=== PATIENT | male | born 1960 | race African-American/Black ===

== ENCOUNTER 2017-03-10 18:24 | Emergency (ER) | payer OTHER ==
[~2017-03-10] VITALS: Ht 177.8 cm; Wt 77.3 kg
[~2017-03-10 18:24] MED LIST: AMLO-511 PO; ARIP30TA PO; CHLO50 PO; LISI5TAB PO; PARO20TA24 PO; PERCT10 PO; PHEN100C23 PO; QUET200T PO
[2017-03-10 19:25] LABS: BASOPHILS % (AUTO) 0.3 % (0.0-2.0); EOSINOPHILS % (AUTO) 2.7 % (1.0-6.0); HEMATOCRIT 42.4 % (41-53); HEMOGLOBIN 14.4 g/dL (13.5-17.5); LYMPHOCYTES # (AUTO) 2.5 K/uL (1.0-4.8); LYMPHOCYTES % (AUTO) 28.3 % (22.0-44.0); MEAN CORPUSCULAR VOLUME 85 fL (80-100); MONOCYTES # (AUTO) 0.1 K/uL (0.1-1.0); MONOCYTES % (AUTO) 0.8 % (2.0-9.0); NEUTROPHILS % (AUTO) 67.9 % (40.0-70.0); PLATELET COUNT (AUTO) 295 K/uL (150-450); RED BLOOD CELL COUNT(AUTO) 4.97 MIL/uL (4.50-5.90)
[2017-03-10 19:37] LABS: PROTHROMBIN TIME 10.7 SEC (9.4-11.6)
[2017-03-10] MEDS ORDERED: ONDANSETRON HCL 4 MG/2 ML VIAL IVP ONE (19:45)
[2017-03-10 19:47] LABS: ANION GAP 7 mmol/L (8-16); CALCIUM, TOTAL 9.1 mg/dL (8.8-10.5); CARBON DIOXIDE 31 mmol/L (22-29); CHLORIDE 100 mmol/L (98-107); CREATININE 1.12 mg/dL (0.60-1.30); GLOMERULAR FILTR. RATE CALC > 60 mL/min (>60); GLUCOSE,RANDOM 91 mg/dL (70-110); POTASSIUM 3.8 mmol/L (3.5-5.1); SODIUM SERUM 138 mmol/L (136-145)
[2017-03-10 20:04] LABS: B-TYPE NATRIURETIC PEPTIDE < 5 pg/mL (0-100)
[2017-03-10 20:11] LABS: ALANINE AMINOTRANSFERASE 25 U/L (12-78); ALBUMIN 3.4 g/dL (3.4-5.0); ALKALINE PHOSPHATASE 88 U/L (46-116); ASPARTATE AMINOTRANSFERASE 21 U/L (15-37); BILIRUBIN,TOTAL 0.3 mg/dL (0.1-1.0); CREATINE KINASE, TOTAL 395 U/L (39-308); LIPASE 90 U/L (73-393); TOTAL PROTEIN, SERUM 7.7 g/dL (6.4-8.2)
[2017-03-10 20:20] LABS: UREA NITROGEN, BLOOD 8 mg/dL (7-18)
[2017-03-10 20:32] LABS: PHENYTOIN (DILANTIN) < 0.5 mcg/mL (10.0-20.0)
[2017-03-10] MEDS ORDERED: MORPHINE SULFATE 4 MG/ML SYRINGE IVP ONE (20:45)
[2017-03-10] MEDS ORDERED: SODIUM CHLORIDE 0.9% 1,000 ML IV ONE (20:45)
[2017-03-11 00:40] LABS: APPEARANCE,URINE CLEAR (CLEAR); BILIRUBIN,URINE NEGATIVE (NEGATIVE); GLUCOSE, URINE (UA) NEGATIVE (NEGATIVE); KETONES,URINE NEGATIVE (NEGATIVE); LEUKOCYTE ESTERASE ,URINE NEGATIVE (NEGATIVE); NITRATE,URINE NEGATIVE (NEGATIVE); OCCULT BLOOD,URINE NEGATIVE (NEGATIVE); PROTEIN,URINE NEGATIVE (NEGATIVE); UROBILINOGEN,URINE 0.2 mg/dL (<=1.0)
[2017-03-11 01:20] VITALS: BP 140/74
== END 2017-03-11 02:02 | disposition home or self-care (01) ==
LOC: EMS 18:25
DX: R07.9 Chest pain, unspecified (principal); R11.2 Nausea with vomiting, unspecified; R05 Cough; I10 Essential (primary) hypertension; F17.210 Nicotine dependence, cigarettes, uncomplicated
CPT/HCPCS: 36415; 71045; 80053; 80185; 81003; 82550; 82553; 83690; 83880; 84484; 85025; 85610; 85730; 93005; 96361; 96374; 96375; 99285; J2270; J2405; J7030

== ENCOUNTER 2021-11-10 08:16 | Emergency (ER) | payer OTHER ==
[~2021-11-10] VITALS: Ht 175.3 cm; Wt 79.5 kg
[~2021-11-10 08:16] MED LIST changes: +AMLO-257 PO; -AMLO-511 PO; -CHLO50 PO; +CHLO50TA61 PO; +OXYC-490 PO; +PARO-38 PO; -PARO20TA24 PO; -PERCT10 PO
[2021-11-10 10:30] VITALS: BP 186/93
[2021-11-10 10:51] LABS: BASOPHILS % (AUTO) 0.9 % (0.0-2.0); EOSINOPHILS % (AUTO) 3.1 % (1.0-6.0); HEMATOCRIT 37.4 % (41-53); HEMOGLOBIN 12.3 g/dL (13.5-17.5); LYMPHOCYTES # (AUTO) 3.3 K/uL (1.0-4.8); LYMPHOCYTES % (AUTO) 41.1 % (22.0-44.0); MEAN CORPUSCULAR HEMOGLOBIN 26.2 pg (26.0-34.0); MEAN CORPUSCULAR HGB CONC 32.8 G/dL (31.0-37.0); MEAN CORPUSCULAR VOLUME 80 fL (80-100); MONOCYTES # (AUTO) 0.7 K/uL (0.1-1.0); NEUTROPHILS # (AUTO) 3.7 K/uL (1.8-7.7); NEUTROPHILS % (AUTO) 45.9 % (40.0-70.0); PLATELET COUNT (AUTO) 344 K/uL (150-450); RED BLOOD CELL COUNT(AUTO) 4.69 MIL/uL (4.50-5.90); RED CELL DISTRIBUTION WIDTH 16.2 % (11.5-14.5)
[2021-11-10 11:01] LABS: ANION GAP 5 mmol/L (8-16); CALCIUM, TOTAL 9.3 mg/dL (8.8-10.5); CARBON DIOXIDE 28 mmol/L (22-29); CHLORIDE 107 mmol/L (98-107); CREATININE 0.79 mg/dL (0.60-1.30); GLUCOSE,RANDOM 108 mg/dL (70-110); POTASSIUM 3.5 mmol/L (3.5-5.1); SODIUM SERUM 140 mmol/L (136-145); UREA NITROGEN, BLOOD 7 mg/dL (7-18)
[2021-11-10 11:02] LABS: PROTHROMBIN TIME 10.5 SEC (9.4-11.6)
[2021-11-10 11:07] LABS: ALANINE AMINOTRANSFERASE 22 U/L (12-78); ALBUMIN 3.1 g/dL (3.4-5.0); ALKALINE PHOSPHATASE 99 U/L (46-116); ASPARTATE AMINOTRANSFERASE 21 U/L (15-37); BILIRUBIN,TOTAL 0.3 mg/dL (0.1-1.0)
[2021-11-10 11:10] LABS: GLOMERULAR FILTR. RATE CALC > 60 mL/min (>60)
[2021-11-10 11:17] LABS: B-TYPE NATRIURETIC PEPTIDE 23 pg/mL (0-100)
== END 2021-11-10 12:25 | disposition home or self-care (01) ==
LOC: EMS 08:20
DX: T40.1X1A Poisoning by heroin, accidental (unintentional), initial encounter (principal); Y92.89 Other specified places as the place of occurrence of the external cause; I10 Essential (primary) hypertension; Z98.890 Other specified postprocedural states; F17.210 Nicotine dependence, cigarettes, uncomplicated
CPT/HCPCS: 99285; 71045; 80053; 83880; 84484; 85025; 85610; 85730; 36415; 93005; G0480

== ENCOUNTER 2022-09-01 19:27 | Emergency (ER) | payer OTHER ==
[~2022-09-01] VITALS: Ht 175.3 cm; Wt 77.3 kg
[2022-09-01 19:29] VITALS: TEMP 98.2
[2022-09-01] MEDS ORDERED: SULF-261 PO (21:37)
[2022-09-01] MEDS ORDERED: CEPH-558 PO (21:37)
[2022-09-01] MEDS ORDERED: ACETAMINOPHEN 500 MG TABLET PO ONE (21:45)
[2022-09-01 22:32] LABS: GLUCOMETER DEV NAME(LOC) ER.6; GLUCOSE,POINT OF CARE 96 MG/DL (70-110)
[2022-09-01 23:30] VITALS: BP 136/70; PULSE 66; RESP 18
== END 2022-09-02 00:57 | disposition left against medical advice (07) ==
LOC: EMS 19:27
DX: F10.90 Alcohol use, unspecified, uncomplicated (principal); G89.29 Other chronic pain; M79.602 Pain in left arm; F17.210 Nicotine dependence, cigarettes, uncomplicated; I10 Essential (primary) hypertension; Z98.890 Other specified postprocedural states; Z90.49 Acquired absence of other specified parts of digestive tract; Z59.00 Homelessness unspecified
CPT/HCPCS: 82962; 99282